=== PATIENT | female | born 1940 | race Two or more races ===

== ENCOUNTER 2019-03-23 21:51 | Inpatient (IN) | payer OTHER ==
[~2019-03-23] VITALS: Ht 162.6 cm; Wt 61.5 kg
[2019-03-23] MEDS ORDERED: SODIUM CHLORIDE 0.9% 1,000ML IVBOLUS ONE (22:00)
--- NOTE | 2019-03-23 22:02 | NUR ---
ASIA. REPORT RECEIVED FROM EMS. PER PT'S NEIGHBOR PT HAS ALTERLED MENTAL STATUS. PT'S AOX2 HERE. PT HAD DIAARRHEA AT HOME PER EMS. C/O PAIN WITH URINATION. RESPS EVEN AND UNLABORED. ALL MONITORS IN PLACE. EKG DONE AT BEDSIDE BY EMT. EDMD AT BEDSIDE TO EVALUATE. POOR HITORIAN.
--- NOTE | 2019-03-23 22:08 | NUR ---
PT TO CT NOW.
--- NOTE | 2019-03-23 22:24 | NUR ---
PT BACK TO ROOM FROM CT NOW.
--- NOTE | 2019-03-23 22:28 | NUR ---
NS INFUSING AT THIS TIME. PT TOLERATED WELL.
--- NOTE | 2019-03-23 22:40 | NUR ---
PT STRAIGHT CATH'D USING STERILE TECHNIQUE. PT TOLERATED WELL. THIS RN WALKED TO LAB.
[2019-03-23 22:51] LABS: MICROSCOPIC INDICATED
[2019-03-23 23:07] LABS: BASOPHILS # (AUTO) 0.01 x10^3/uL (0-0.1); BASOPHILS % (AUTO) 0 % (0-1); EOSINOPHILS # (AUTO) 0.01 x10^3/uL (0-0.4); EOSINOPHILS % (AUTO) 0 % (1-7); LYMPHOCYTES # (AUTO) 2.14 x10^3/uL (1-3.4); LYMPHOCYTES % (AUTO) 17 % (22-44); MD NO; MEAN CORPUSCULAR HEMOGLOBIN 26.3 pg (27.0-34.8); MEAN CORPUSCULAR VOLUME 79.6 fL (80-100); MEAN PLATELET VOLUME 8.8 fL (7.4-10.4); MONOCYTES # (AUTO) 0.64 x10^3/uL (0.2-0.8); MONOCYTES % (AUTO) 5 % (2-9); NEUTROPHILS # (AUTO) 9.51 x10^3/uL (1.8-6.8); NEUTROPHILS % (AUTO) 77 % (42-75); PLATELET COUNT 315 x10^3/uL (130-400); RED CELL DISTRIBUTION WIDTH 14.8 % (9.6-15.2)
--- NOTE | 2019-03-23 23:07 | NUR ---
PER PT'S DAUGHTER ON THE PHONE, PT HAS ETOH ABUSE. PT'S DAUGHTER IS ADONAY JUANA [phone]
[2019-03-23 23:08] LABS: AMPHETAMINE SCREEN, URINE Negative (Negative); BARBITURATE SCREEN, URINE Negative (Negative); BENZODIAZEPINE SCREEN, URINE Negative (Negative); CANNABINOID SCREEN, URINE Positive (Negative); COCAINE SCREEN, URINE Negative (Negative); METHADONE SCREEN, URINE Negative (Negative); OPIATE SCREEN, URINE Negative (Negative)
[2019-03-23 23:09] LABS: CULTURE INDICATED? NO
[2019-03-23 23:21] LABS: ALANINE AMINOTRANSFERASE 28 U/L (12-78); ANION GAP 13 mmol/L (5-15); CALCIUM 7.5 mg/dL (8.5-10.1); CHLORIDE 106 mmol/L (98-107); CREATININE 0.95 mg/dL (0.55-1.02)
[2019-03-23 23:23] LABS: ALKALINE PHOSPHATASE 52 U/L (45-117); BILIRUBIN,TOTAL 0.7 mg/dL (0.2-1.0); TOTAL PROTEIN 7.4 g/dL (6.4-8.2)
[2019-03-23 23:30] LABS: SALICYLATE LEVEL < 1.7 mg/dL (2.8-20.0)
--- NOTE | 2019-03-24 00:11 | NUR ---
REPORT GIVEN TO DANIEL HANSEN. ALL QUESTIONS ANSWERED.
--- NOTE | 2019-03-24 00:16 | NUR ---
THIS RN CALLED PT'S DAUGHTER. WAS NOT ABLE TO REACH AT THIS TIME.
[2019-03-24] MEDS ORDERED: ONDANSETRON 2MG/ML, 2ML IVPush PRN (00:30)
[2019-03-24 00:36] VITALS: BP 143/100
[2019-03-24] MEDS: HEPARIN 5,000 UNITS/ML, 1ML SQ SCH ×3 (01:25→17:43)
[2019-03-24] MEDS: SODIUM CHLORIDE 0.9% 1,000 ML IV SCH ×3 (01:25→21:30)
[2019-03-24 06:09] LABS: BASOPHILS # (AUTO) 0.07 x10^3/uL (0-0.1); BASOPHILS % (AUTO) 1 % (0-1); EOSINOPHILS # (AUTO) 0.07 x10^3/uL (0-0.4); EOSINOPHILS % (AUTO) 1 % (1-7); LYMPHOCYTES # (AUTO) 3.89 x10^3/uL (1-3.4); LYMPHOCYTES % (AUTO) 38 % (22-44); MD NO; MEAN CORPUSCULAR HEMOGLOBIN 26.4 pg (27.0-34.8); MEAN CORPUSCULAR HGB CONC 33.4 g/dL (32.4-35.8); MEAN CORPUSCULAR VOLUME 79.1 fL (80-100); MEAN PLATELET VOLUME 9.2 fL (7.4-10.4); MONOCYTES # (AUTO) 0.96 x10^3/uL (0.2-0.8); MONOCYTES % (AUTO) 9 % (2-9); NEUTROPHILS # (AUTO) 5.23 x10^3/uL (1.8-6.8); NEUTROPHILS % (AUTO) 51 % (42-75); PLATELET COUNT 265 x10^3/uL (130-400); RED BLOOD COUNT 4.27 x10^6/uL (3.82-5.3); RED CELL DISTRIBUTION WIDTH 14.7 % (9.6-15.2)
[2019-03-24 06:15] LABS: ALBUMIN 2.6 g/dL (3.4-5.0); ANION GAP 9 mmol/L (5-15); CALCIUM 7.4 mg/dL (8.5-10.1); CHLORIDE 106 mmol/L (98-107)
[2019-03-24 06:18] LABS: ALANINE AMINOTRANSFERASE 21 U/L (12-78); ALKALINE PHOSPHATASE 49 U/L (45-117); BILIRUBIN,TOTAL 1.1 mg/dL (0.2-1.0); CREATININE 0.63 mg/dL (0.55-1.02); TOTAL PROTEIN 6.6 g/dL (6.4-8.2)
[2019-03-24 08:07] VITALS: BP 163/69
[2019-03-24] MEDS: ACETAMINOPHEN 325 MG TABLET PO PRN (09:33)
[2019-03-24 14:49] VITALS: BP 162/83
[2019-03-24 15:17] LABS: CLOSTRIDIUM DIFFICILE ANTIGEN NEGATIVE; CLOSTRIDIUM DIFFICILE TOXIN NEGATIVE (Negative)
[2019-03-24 20:42] VITALS: BP 163/82
[2019-03-25] MEDS: HEPARIN 5,000 UNITS/ML, 1ML SQ SCH ×3 (00:01→16:30)
[2019-03-25] MEDS: ACETAMINOPHEN 325 MG TABLET PO PRN (00:05)
[2019-03-25 00:51] VITALS: BP 152/82
[2019-03-25 05:55] LABS: BASOPHILS # (AUTO) 0.08 x10^3/uL (0-0.1); BASOPHILS % (AUTO) 1 % (0-1); EOSINOPHILS # (AUTO) 0.13 x10^3/uL (0-0.4); EOSINOPHILS % (AUTO) 2 % (1-7); LYMPHOCYTES # (AUTO) 3.38 x10^3/uL (1-3.4); LYMPHOCYTES % (AUTO) 42 % (22-44); MD NO; MEAN CORPUSCULAR HEMOGLOBIN 26.5 pg (27.0-34.8); MEAN CORPUSCULAR HGB CONC 33.2 g/dL (32.4-35.8); MEAN CORPUSCULAR VOLUME 79.7 fL (80-100); MEAN PLATELET VOLUME 9.2 fL (7.4-10.4); MONOCYTES # (AUTO) 0.74 x10^3/uL (0.2-0.8); MONOCYTES % (AUTO) 9 % (2-9); NEUTROPHILS # (AUTO) 3.82 x10^3/uL (1.8-6.8); NEUTROPHILS % (AUTO) 47 % (42-75); PLATELET COUNT 211 x10^3/uL (130-400); RED BLOOD COUNT 4.03 x10^6/uL (3.82-5.3); RED CELL DISTRIBUTION WIDTH 14.3 % (9.6-15.2)
[2019-03-25 06:02] LABS: ANION GAP 7 mmol/L (5-15); CALCIUM 7.6 mg/dL (8.5-10.1); CHLORIDE 113 mmol/L (98-107)
[2019-03-25 07:30] VITALS: BP 130/71
[2019-03-25] MEDS: SODIUM CHLORIDE 0.9% 1,000 ML IV SCH ×2 (08:05→16:36)
[2019-03-25 14:15] VITALS: BP 136/74
[2019-03-25] MEDS ORDERED: PRED5TAB PO (16:13)
[2019-03-25] MEDS ORDERED: FAMO-79 PO (16:13)
== END 2019-03-25 18:12 | disposition home or self-care (01) | DRG 56 ==
LOC: ED 03-24 00:05 → 4WST 03-24 00:08 → ED 03-24 00:24
PROVIDERS: ADMIT Internal Medicine; ATTEND Internal Medicine
PROC: 0T9B70Z Drainage of Bladder with Drainage Device, Via Natural or Artificial Opening (ICD-10-PCS; principal; 2019-03-23)
DX: G31.2 Degeneration of nervous system due to alcohol (principal); G92 Toxic encephalopathy; E86.0 Dehydration; M06.9 Rheumatoid arthritis, unspecified; M19.90 Unspecified osteoarthritis, unspecified site; R62.7 Adult failure to thrive; R19.7 Diarrhea, unspecified; R30.0 Dysuria
CPT/HCPCS: 36415; 70450; 71045; 80048; 80053; 80307; 81001; 82140; 82728; 83540; 83550; 83735; 85025; 87324; 93005; 96360; 96361; 99285; G0378; J1644; J7030; J7512